=== PATIENT | female | born 1990 | race Caucasian/White ===

== ENCOUNTER 2021-03-17 19:33 | Emergency (ER) | payer OTHER ==
[~2021-03-17 19:33] MED LIST: COLACE 100MG C100 MG PO; IBUPROFEN600 MG PO; NORCO 5-325 TA1 EACH PO; ROBITUSSIN AC480 ML PO; TAMIFLU 75 MG C75 MG PO; ZOFRAN4 MG PO
[2021-03-17] MEDS ORDERED: MEDROL DOSEPAK 24 MG PO (22:10)
[2021-03-17] MEDS ORDERED: ZITHROMAX250 MG PO (22:10)
[2021-03-17] MEDS ORDERED: ZOFRAN4 MG PO (22:10)
[2021-03-17] MEDS ORDERED: DELSYM30 MG/5 ML PO (22:10)
== END 2021-03-17 22:21 | disposition home or self-care (01) ==
LOC: ER1 19:33
DX: U07.1 COVID-19 (principal)
CPT/HCPCS: 71045; 96374; 99283; J1100

== ENCOUNTER 2021-03-20 20:43 | Emergency (ER) | payer OTHER ==
[~2021-03-20] VITALS: Ht 162.6 cm; Wt 86.2 kg
[~2021-03-20 20:43] MED LIST changes: +DELSYM30 MG/5 ML PO; +MEDROL DOSEPAK 24 MG PO; +ZITHROMAX250 MG PO
[2021-03-20 21:27] LABS: RED BLOOD COUNT 4.6 M/UL (4.00-5.10); WHITE BLOOD COUNT 5.3 K/UL (4.5-11.0)
[2021-03-20 21:44] LABS: BUN/CREATININE RATIO 18 (0-10)
[2021-03-21] MEDS ORDERED: CEPHALEXIN500 M1 PO (00:03)
[2021-03-21] MEDS ORDERED: PROAIR HFA8.5 GM INH (00:03)
== END 2021-03-21 01:35 | disposition home or self-care (01) ==
LOC: ER1 20:43
PROVIDERS: Physician Assistant
DX: Z23 Encounter for immunization (principal); U07.1 COVID-19; J12.82 Pneumonia due to coronavirus disease 2019; N39.0 Urinary tract infection, site not specified; R79.1 Abnormal coagulation profile; F17.210 Nicotine dependence, cigarettes, uncomplicated
CPT/HCPCS: 71045; 80053; 81001; 82550; 82553; 83874; 83880; 84484; 84703; 85025; 85379; 85610; 85730; 87086; 93005; 99285; M0243; Q9967

== ENCOUNTER 2021-04-05 19:42 | Emergency (ER) | payer OTHER ==
[~2021-04-05 19:42] MED LIST changes: +CEPHALEXIN500 M1 PO; +PROAIR HFA8.5 GM INH
[2021-04-05 20:46] LABS: HEMOGLOBIN 13.1 gm/dl (12.3-15.3); RED BLOOD COUNT 4.64 M/UL (4.00-5.10)
[2021-04-05 21:17] LABS: BUN/CREATININE RATIO 17 (0-10)
[2021-04-05] MEDS ORDERED: LODINE CAP 300300 MG PO (22:03)
== END 2021-04-05 22:15 | disposition home or self-care (01) ==
LOC: ER1 19:42
PROVIDERS: Physician Assistant Medical
DX: U07.1 COVID-19 (principal); Z88.0 Allergy status to penicillin
CPT/HCPCS: 71045; 80053; 84484; 85025; 85379; 93005; 99285

== ENCOUNTER → 2021-04-15 | Outpatient (CLI) | payer OTHER ==
[~2021-04-15] MED LIST changes: +LODINE CAP 300300 MG PO
== END ==
LOC: LAB 12:36
DX: Z32.00 Encounter for pregnancy test, result unknown (principal)
CPT/HCPCS: 36415; 84702

== ENCOUNTER 2021-06-18 19:57 | Emergency (ER) | payer OTHER ==
[2021-06-18 20:42] LABS: HEMOGLOBIN 13.2 gm/dl (12.3-15.3); RED BLOOD COUNT 4.56 M/UL (4.00-5.10); WHITE BLOOD COUNT 17.4 K/UL (4.5-11.0)
[2021-06-18 21:04] LABS: BUN/CREATININE RATIO 22 (0-10)
== END 2021-06-19 00:08 | disposition home or self-care (01) ==
LOC: ER1 19:57
PROVIDERS: Family Medicine
DX: O99.891 Other specified diseases and conditions complicating pregnancy (principal); R10.2 Pelvic and perineal pain; Z3A.13 13 weeks gestation of pregnancy
CPT/HCPCS: 80053; 81001; 83690; 84702; 85025; 99284

== ENCOUNTER → 2021-10-09 | Outpatient (CLI) | payer OTHER | LOC: HEART 5 08:10 | DX: R01.1 Cardiac murmur, unspecified (principal); U07.1 COVID-19; R06.02 Shortness of breath | CPT/HCPCS: 93306 ==

== ENCOUNTER 2021-11-06 17:14 | Outpatient (CLI) | payer OTHER | END 2021-11-06 23:04 | disposition home or self-care (01) | LOC: GENOP 17:14 | DX: O99.891 Other specified diseases and conditions complicating pregnancy (principal); R10.9 Unspecified abdominal pain; Z3A.33 33 weeks gestation of pregnancy | CPT/HCPCS: 59025; 81001 ==

== ENCOUNTER 2021-12-02 14:06 | Outpatient (CLI) | payer OTHER | END 2021-12-03 10:47 | disposition home or self-care (01) | LOC: GENOP 14:06 | DX: O47.03 False labor before 37 completed weeks of gestation, third trimester (principal); O21.2 Late vomiting of pregnancy; Z3A.36 36 weeks gestation of pregnancy | CPT/HCPCS: 96360; 96361; 96375; J2300; J2405; J7120 ==

== ENCOUNTER 2021-12-07 03:39 | Outpatient (CLI) | payer OTHER ==
[2021-12-07 05:53] LABS: BUN/CREATININE RATIO 15 (0-10)
== END 2021-12-07 05:37 | disposition home or self-care (01) ==
LOC: GENOP 03:39
PROVIDERS: Obstetrics & Gynecology
DX: O36.8130 Decreased fetal movements, third trimester, not applicable or unspecified (principal); O26.893 Other specified pregnancy related conditions, third trimester; L29.9 Pruritus, unspecified; Z3A.37 37 weeks gestation of pregnancy
CPT/HCPCS: 36415; 59025; 80053; 81001; 82239

== ENCOUNTER 2021-12-11 16:31 | Inpatient (IN) | payer OTHER ==
[~2021-12-11] VITALS: Ht 162.6 cm; Wt 108.9 kg
[2021-12-11 17:29] LABS: RED BLOOD COUNT 4.14 M/UL (4.00-5.10); WHITE BLOOD COUNT 11.3 K/UL (4.5-11.0)
[2021-12-11 18:02] LABS: BUN/CREATININE RATIO 12 (0-10)
[2021-12-11] MEDS ORDERED: PRILOSEC OTC20 MG PO (18:41)
[2021-12-11] MEDS ORDERED: PRENATAL VITAM1 EAC3 PO (18:42)
[2021-12-12] MEDS ORDERED: COLACE100 MG PO (18:19)
[2021-12-12] MEDS ORDERED: HEMOCYTE324 MG PO (18:19)
[2021-12-12] MEDS ORDERED: IBUPROFEN800 MG PO (18:19)
[2021-12-13 02:57] LABS: HEMOGLOBIN 9.1 gm/dl (12.3-15.3)
== END 2021-12-14 17:12 | disposition home or self-care (01) | DRG 807 ==
LOC: GENOP 16:31 → OB 17:06
PROVIDERS: ADMIT Obstetrics & Gynecology
PROC: 4A1HXCZ Monitoring of Products of Conception, Cardiac Rate, External Approach (ICD-10-PCS; 2021-12-11)
PROC: 10E0XZZ Delivery of Products of Conception, External Approach (ICD-10-PCS; principal; 2021-12-12)
PROC: 10907ZC Drainage of Amniotic Fluid, Therapeutic from Products of Conception, Via Natural or Artificial Opening (ICD-10-PCS; 2021-12-12)
PROC: 3E0234Z Introduction of Serum, Toxoid and Vaccine into Muscle, Percutaneous Approach (ICD-10-PCS; 2021-12-12)
DX: O13.4 Gestational [pregnancy-induced] hypertension without significant proteinuria, complicating childbirth (principal); Z37.0 Single live birth; Z3A.38 38 weeks gestation of pregnancy; Z20.822 Contact with and (suspected) exposure to COVID-19; H91.90 Unspecified hearing loss, unspecified ear; O69.1XX0 Labor and delivery complicated by cord around neck, with compression, not applicable or unspecified; Z88.0 Allergy status to penicillin; Z88.1 Allergy status to other antibiotic agents; Z28.310 Unvaccinated for COVID-19; Z80.3 Family history of malignant neoplasm of breast; Z80.1 Family history of malignant neoplasm of trachea, bronchus and lung; Z82.3 Family history of stroke; Z81.8 Family history of other mental and behavioral disorders; Z83.3 Family history of diabetes mellitus; Z82.49 Family history of ischemic heart disease and other diseases of the circulatory system; Z23 Encounter for immunization
CPT/HCPCS: 36415; 80053; 81001; 82570; 83615; 84156; 84550; 85014; 85018; 85025; 90471; 90715; J2405; J2590; J2795; J7120; U0002